=== PATIENT | male | born 1955 | race Caucasian/White ===

== ENCOUNTER 2024-05-18 12:33 | Day surgery (SDC) | payer MEDICARE, SELFPAY ==
[2024-05-11 13:14] VITALS: BMI 22.0
[2024-05-12 08:18] VITALS: BMI 22.0
--- NOTE | 2024-05-16 12:40 | P.CONAN_ITS ---
Documented by User: Leyla Rodriguez NP 05/17/24 08:36 HPI - Anesthesia Eval Consult details Narrative: 68yo M for Colonoscopy Follows [facility] cardiology for Hx aortic dissection 2020, afib (eliquis), HF with Tricuspid regurg (mod). Optimized to proceed with colo Anesthesia Pre-Procedure Meds Is the patient on any of the following meds?: SGLT2 Inhib PMFSH Past Medical History Medical History Atrial fibrillation Aortic dissection CAD (coronary artery disease) Tricuspid regurgitation Elevated cholesterol HTN (hypertension) Surgical History Surgical History Hx of knee surgery Hx of heart surgery H/O colonoscopy Social History Social History Household Members: Spouse Are you a primary floor care technician to a significant other at home: No Do you presently have visiting nurse or other home services: No Patient Tobacco Use Status: Never used Tobacco Substance Use Type: Marijuana Meds Allergies Allergy/AdvReac Type Severity Reaction Status Date / Time No Known Allergies Allergy Verified 05/18/24 12:57 Home Medications ?Medication ?Instructions ?Recorded ?Confirmed ?Last Taken ?Type amlodipine 10 mg tablet 10 mg PO DAILY 05/11/24 05/18/24 Unknown History apixaban 5 mg tablet (Eliquis) 5 mg PO BID 05/11/24 05/18/24 05/14/24 History aspirin 81 mg tablet,delayed 81 mg PO DAILY 05/11/24 05/18/24 05/12/24 History release atorvastatin 40 mg tablet 40 mg PO DAILY 05/11/24 05/18/24 Unknown History carvedilol 6.25 mg tablet 6.25 mg PO BID 05/11/24 05/18/24 05/18/24 08:00 History dapagliflozin propanediol 10 mg 10 mg PO DAILY 05/11/24 05/18/24 05/14/24 Hi story tablet (Farxiga) digoxin 125 mcg (0.125 mg) tablet 125 mcg PO DAILY 05/11/24 05/18/24 05/18/24 08:00 History nitroglycerin 2 % transdermal 1 inch transdermal BID 05/11/24 05/18/24 Unknown History ointment (Nitro-Bid) spironolactone 25 mg tablet 25 mg PO DAILY 05/11/24 05/18/24 Unknown History Exam Height,Weight and Vital Signs: Height 6 ft 2 in Weight 77.564 kg Narrative Narrative: ECHO 11/2023 Summary The left ventricular size is normal. Left ventricular wall thickness is normal. The LV systolic function is normal . The left ventricular ejection fraction is 55-60 %. No obvious wall motion abnormalities seen on limited views. The left atrium is severely dilated. The right ventricle is severely dilated. Right ventricular systolic function is reduced. The right atrium is severely dilated. There is apical tethering of the tricuspid valve leaflets. There is moderate tricuspid valve regurgitation. The pulmonary artery systolic pressure estimation is at least [address] Angio 2023 IMPRESSION: 1. Unchanged graft repair of the ascending aorta for treatment of a type A aortic dissection. 2. Overall unchanged residual dissection throughout the thoracic aorta. Evidence of minimal, if any growth, in the overall dilatation of the descending thoracic aorta as measured above. 3. Unchanged dissection throughout the abdominal aorta. Stable focal dilatation measuring 3.8 x 3.7 cm. 4. Evidence of increasing dilatation of the common iliac artery bilaterally. 5. Developing 1 cm nodular airspace opacity in the medial right costophrenic angle. Consider CT at 3 months, PET/CT, or tissue sampling per Guidelines for Management of Incidental Pulmonary Nodules Detected on CT Images: From the Fleischner Society 2017. 6. Small amount of free fluid in the pelvis of uncertain etiology. Recommend clinical correlation. Assessment and Plan Assessment Anesthesia Assessment: Chart Reviewed Documented by User: Veronica Solorio MD 05/18/24 13:55 HPI - Anesthesia Eval Anesthesia Pre-Procedure Meds Is the patient on any of the following meds?: SGLT2 Inhib (Last dose of Farxiga 05/14/24) [facility] Past Medical History Medical History Atrial fibrillation Aortic dissection CAD (coronary artery disease) Tricuspid regurgitation Elevated cholesterol HTN (hypertension) Family History Family history of problems with anesthesia: No Surgical History Surgical History Hx of knee surgery Hx of heart surgery H/O colonoscopy History of Problems with Anesthesia: No Social History Social History Household Members: Spouse Are you a primary floor care technician to a significant other at home: No Do you presently have visiting nurse or other home services: No Patient Tobacco Use Status: Never used Tobacco Substance Use Type: Marijuana Meds Allergies Allergy/AdvReac Type Severity Reaction Status Date / Time No Known Allergies Allergy Verified 05/18/24 12:57 Home Medications ?Medication ?Instructions ?Recorded ?Confirmed ?Last Taken ?Type amlodipine 10 mg tablet 10 mg PO DAILY 05/11/24 05/18/24 Unknown History apixaban 5 mg tablet (Eliquis) 5 mg PO BID 05/11/24 05/18/24 05/14/24 History aspirin 81 mg tablet,delayed 81 mg PO DAILY 05/11/24 05/18/24 05/12/24 History release atorvastatin 40 mg tablet 40 mg PO DAILY 05/11/24 05/18/24 Unknown History carvedilol 6.25 mg tablet 6.25 mg PO BID 05/11/24 05/18/24 05/18/24 08:00 History dapagliflozin propanediol 10 mg 10 mg PO DAILY 05/11/24 05/18/24 05/14/24 History tablet (Farxiga) digoxin 125 mcg (0.125 mg) tablet 125 mcg PO DAILY 05/11/24 05/18/24 05/18/24 08:00 History nitroglycerin 2 % transdermal 1 inch transdermal BID 05/11/24 05/18/24 Unknown History ointment (Nitro-Bid) spironolactone 25 mg tablet 25 mg PO DAILY 05/11/24 05/18/24 Unknown History Exam Height,Weight and Vital Signs: Height 6 ft 2 in Weight 77.564 kg Vital Signs Temp Pulse Resp BP Pulse Ox O2 Del Method 05/18/24 13:23 98.3 F 50 16 151/75 H 97 Room Air Airway Mallampati Class: II TM Dist: >3cm Loose/Missing/Broken Teeth: No Heart: RRR Lungs: CTAB Assessment and Plan Assessment Anesthesia Assessment: Anesthesia Plan Discussed and Chart Reviewed Final Anesthetic Review Family History of Problems with Anesthesia: No History of Problems with Anesthesia: No NPO: Yes ASA Class: III Final Preanesthetic Review: No Changes in Pt Med Stat, Meds/Allgs Chart Reviewed, Consent Obtained/Reviewed and Anes Risks/Benef Reviewed Patient Risk: Intermediate
[2024-05-18 13:23] VITALS: BP 151/75; PULSE 50; RESP 16; TEMP 36.8; O2SAT 97; BMI 21.6
[2024-05-18] MEDS: Lactated Ringers 1,000 ML 50 ML IVCONT (13:27)
--- NOTE | 2024-05-18 13:32 | MHC.SHP ---
Pre-Procedural Eval Section A - 24 Hr Update-Section A only Date of Service: 05/18/24 Section B - Complete if H&P > 30 days Chief Complaint: Encounter for screening for malignant neoplasm of Details of Present Illness: see H&P no changes Relevant Family History (Specify if Yes): No Relevant Social History: None Present Medications: None Medical History: No relevant PMH History of Previous Operations: No relevant previous surgery Allergies: Allergies Allergy/AdvReac Type Severity Reaction Status Date / Time No Known Allergies Allergy Verified 05/18/24 12:57 Review of Systems Sugical H&P ROS: Negative: Constitution, Cardiovascular, Respiratory, Neurological, Psychiatric, Hem-Onc, Allergic/Immunologic, Gastrointestinal, Genitourinary, Musculoskeletal, Integumentary, Endocrine and Eyes/Ears/Nose/Throat Exam Surgical H&P Exam: Normal: HEENT, Normal: Heart, Normal: Lungs, Normal: Extremities, Normal: Abdomen, Normal: Skin and Normal: Neurological Plan Diagnosis/Plan: Unchanged I have reviewed the history and physical and performed a pertinent physical examination on my patient. No changes have occurred unless specified. Time Spent With Patient Time: Total time managing care of this patient today ____ minutes.
[2024-05-18 14:10] VITALS: BP 99/51; PULSE 62; RESP 16; TEMP 36.6; O2SAT 97
--- NOTE | 2024-05-18 14:19 | OP_ITS ---
DATE OF SERVICE: 05/18/2024 SURGEON: Ric Spears MD INDICATIONS: Colon cancer screening. PREOPERATIVE DIAGNOSIS: POSTOPERATIVE DIAGNOSIS: PROCEDURE PERFORMED: Colonoscopy to the terminal ileum with snare polypectomy. ESTIMATED BLOOD LOSS: COMPLICATIONS: ANESTHESIA: Monitored anesthesia care. ASSISTANTS: SPECIMENS: DESCRIPTION OF PROCEDURE: A history and physical were performed. The risks and benefits of the procedure were explained to the patient and informed consent was obtained. The patient was placed in the left lateral decubitus position. A digital rectal exam was performed and was found to be normal. The Olympus pediatric video colonoscope was introduced into the rectum and advanced to the cecum. The cecum was identified by transillumination, palpation, and identification of ileocecal valve. Examination was performed and the scope was removed. He tolerated the procedure well and was returned to recovery area in stable condition. FINDINGS: The terminal ileum was examined and appeared normal. The visualized colonic mucosa was normal. In the cecum, was a 7 mm polyp, which was removed with a cold snare and recovered via suction. No other polyps were identified. There was mild sigmoid diverticulosis. The quality of the prep was good. Retroflexed examination showed small internal hemorrhoids. IMPRESSION: Colon polyp. RECOMMENDATION: Follow up the biopsy results. MD SWETA Brown/HEBERTL / [id number]
[2024-05-18 14:25] VITALS: BP 105/68; PULSE 73; RESP 16; TEMP 36.1; O2SAT 98
== END 2024-05-18 15:17 | disposition home or self-care (01) ==
PROVIDERS: PCP Nurse Practitioner Family; Visit Provider Internal Medicine Gastroenterology
PROC: 0DJD8ZZ Inspection of Lower Intestinal Tract, Via Natural or Artificial Opening Endoscopic (ICD-10-PCS; CPT 45378; principal; 2024-05-18 13:40)
DX: Z12.11 Encounter for screening for malignant neoplasm of colon (principal); D12.0 Benign neoplasm of cecum; K57.30 Diverticulosis of large intestine without perforation or abscess without bleeding; K64.8 Other hemorrhoids; I10 Essential (primary) hypertension; E78.5 Hyperlipidemia, unspecified; I48.0 Paroxysmal atrial fibrillation; Z79.01 Long term (current) use of anticoagulants; Z79.02 Long term (current) use of antithrombotics/antiplatelets; Z79.899 Other long term (current) drug therapy; Z79.82 Long term (current) use of aspirin
CPT/HCPCS: 45385; 88305; J2003; J2704